=== PATIENT | female | born 1935 | race Hispanic/Latino ===

== ENCOUNTER → 2017-07-15 | Outpatient (CLI) | payer OTHER ==
[~2017-07-15] MED LIST: ALBU90AE IH; APIX2.5T PO; APIX5TAB PO; CALC-1009 PO; CETI10TA57 PO; DOXY100T2 PO; FAMO40TA7 PO; FERS325 PO; FLUT16H NASAL; FURO40TA7 PO; GABA-529 PO; MONT10TA24 PO; MULT-88 PO; POTA-79 PO; PRAV10TA39 PO; PRAV20TA4 PO; TRAM50TA4 PO; UMEC1DIS IH
== END | disposition home or self-care (01) ==
LOC: SHCH 11:55
PROVIDERS: ATTEND Internal Medicine Cardiovascular Disease
DX: I07.1 Rheumatic tricuspid insufficiency (principal); I35.0 Nonrheumatic aortic (valve) stenosis; Z95.0 Presence of cardiac pacemaker
CPT/HCPCS: 93306

== ENCOUNTER 2017-07-26 05:38 | Day surgery (SDC) | payer OTHER ==
[2017-07-24 13:56] VITALS: BP 101/55
[2017-07-24 14:00] LABS: BASOPHILS % (AUTO) 0.9 % (0.0-5.0); EOSINOPHILS % (AUTO) 6.3 % (0.0-8.0); HEMATOCRIT 37.1 % (36-48); LYMPHOCYTES % (AUTO) 17.1 % (21.0-51.0); MEAN CORPUSCULAR HGB CONC 34.3 g/dL (32.0-36.0); MEAN CORPUSCULAR VOLUME 93.3 fL (79-99); MONOCYTES % (AUTO) 8.8 % (3.0-13.0); NEUTROPHILS % (AUTO) 66.9 % (40.0-77.0); PLATELET COUNT (AUTO) 138 K/uL (130-400); RED BLOOD CELL COUNT(AUTO) 3.98 MIL/uL (4.00-5.50); RED CELL DISTRIBUTION WIDTH 14.3 % (11.0-15.5); WHITE BLOOD COUNT (AUTO) 5.8 K/uL (4.8-10.8)
[2017-07-24 14:13] LABS: CREATININE 1.5 mg/dL (0.5-1.5); POTASSIUM 3.5 mmol/L (3.5-5.1)
[2017-07-24 14:15] LABS: INR 1.05 (0.85-1.15); PARTIAL THROMBOPLASTIN TIME 29.8 SEC (26.3-35.5)
[2017-07-26] VITALS (10 sets, daily range): BP systolic 101–141; BP diastolic 40–71
[~2017-07-26] VITALS: Ht 152.4 cm; Wt 65.4 kg
[~2017-07-26 05:38] MED LIST changes: -APIX2.5T PO; -DOXY100T2 PO; -PRAV10TA39 PO
[2017-07-26] MEDS ORDERED: SODIUM CHLORIDE 0.9% 1000ML 1,000 ML IV ONE (06:53)
[2017-07-26] MEDS ORDERED: BUPIVACAINE/PF 0.25% 30ML VIAL IJ ONE (07:13)
[2017-07-26] MEDS ORDERED: LIDOCAINE HCL 1% MDV 50ML VIAL ONE (07:13)
[2017-07-26] MEDS ORDERED: CEFAZOLIN SODIUM 1 GM VIAL ONE (07:13)
[2017-07-26] MEDS ORDERED: MEPERIDINE-PF 25 MG/ML SYG ONE ×3 (07:39→08:07)
[2017-07-26] MEDS ORDERED: MIDAZOLAM HCL 1 MG/ML 2ML VIAL ONE ×3 (07:39→08:07)
[2017-07-26] MEDS ORDERED: OCTYL 2-CYANOACRYLATE 1 EACH TP ONE (08:39)
[2017-07-26] MEDS ORDERED: ACETAMINOPHEN 325 MG TAB PO PRN ×2 (08:45)
[2017-07-26] MEDS ORDERED: ONDANSETRON HCL 4 MG/2 ML VIAL IV PRN (08:45)
[2017-07-26] MEDS ORDERED: DOXY100T2 PO (08:50)
[2017-07-26] MEDS ORDERED: ONDANSETRON HCL MDV 20ML 2 MG/ML VIAL IV PRN (08:52)
[2017-07-26] MEDS ORDERED: CEFAZOLIN SODIUM 1 GM VIAL IVP SCH (14:00)
== END 2017-07-26 15:00 | disposition home or self-care (01) ==
LOC: DAH 05:38
PROVIDERS: ATTEND Internal Medicine Cardiovascular Disease
DX: Z45.010 Encounter for checking and testing of cardiac pacemaker pulse generator [battery] (principal); I49.5 Sick sinus syndrome; I48.0 Paroxysmal atrial fibrillation; I10 Essential (primary) hypertension; J44.9 Chronic obstructive pulmonary disease, unspecified; J45.901 Unspecified asthma with (acute) exacerbation; M19.90 Unspecified osteoarthritis, unspecified site; Z88.5 Allergy status to narcotic agent; Z79.899 Other long term (current) drug therapy
CPT/HCPCS: 33228; 36415; 80048; 85025; 85610; 85730; 93005; 99152; 99153 ×4; A4218; A4606; C1785; J0690 ×2; J2175 ×3; J2250 ×3; J3490 ×2; J7030

== ENCOUNTER 2018-12-19 12:31 | Observation (INO) | payer OTHER ==
[~2018-12-19] VITALS: Ht 154.9 cm; Wt 65.1 kg
[~2018-12-19 12:31] MED LIST changes: +DOXY100T2 PO
[2018-12-19] MEDS ORDERED: ASPIRIN 325 MG TABLET ONE (12:38)
[2018-12-19 12:50] LABS: BASOPHILS % (AUTO) 0.6 % (0.0-5.0); EOSINOPHILS % (AUTO) 7.2 % (0.0-8.0); HEMATOCRIT 36.7 % (36-48); MEAN CORPUSCULAR HEMOGLOBIN 33.2 pg (27.0-33.0); MEAN CORPUSCULAR VOLUME 97.7 fL (79-99); MONOCYTES % (AUTO) 9.4 % (3.0-13.0); NEUTROPHILS % (AUTO) 60.8 % (40.0-77.0); PLATELET COUNT (AUTO) 128 K/uL (130-400); RED BLOOD CELL COUNT(AUTO) 3.76 MIL/uL (4.00-5.50); RED CELL DISTRIBUTION WIDTH 13.7 % (11.0-15.5); WHITE BLOOD COUNT (AUTO) 5.1 K/uL (4.8-10.8)
[2018-12-19] MEDS ORDERED: KETOROLAC TROMETHAMINE 15MG/ML ONE (12:51)
[2018-12-19 13:05] LABS: INR 1.03 (0.85-1.15); PARTIAL THROMBOPLASTIN TIME 30.1 SEC (26.3-35.5); PROTHROMBIN TIME 10.8 SEC (9.6-11.6)
[2018-12-19 13:11] LABS: CREATININE 1.4 mg/dL (0.5-1.5); POTASSIUM 4.5 mmol/L (3.5-5.1)
[2018-12-19 13:16] LABS: ALBUMIN 3.6 g/dL (3.5-5.0); BILIRUBIN,TOTAL 0.9 mg/dL (0.2-1.0); TOTAL PROTEIN, SERUM 7.4 g/dL (6.0-8.3)
[2018-12-19] MEDS ORDERED: IOHEXOL 350 MG/ML 100ML INFUS..BTL IV ONE (14:10)
[2018-12-19] MEDS ORDERED: NITROGLYCERIN 0.4 MG SL TAB SL ONE (14:44)
[2018-12-19] MEDS ORDERED: NITROGLYCERIN 1GM/1 INCH PACKET TD ONE (15:43)
[2018-12-19] MEDS ORDERED: APIXABAN 2.5 MG TABLET PO ONE (20:38)
[2018-12-19] MEDS ORDERED: SODIUM CHLORIDE 0.9% 1000ML 1,000 ML IV ONE (21:04)
[2018-12-19] MEDS ORDERED: MORPHINE SULFATE 4 MG/1ML SYG ONE (21:05)
[2018-12-19] MEDS ORDERED: ONDANSETRON HCL 4 MG/2 ML VIAL ONE (21:05)
[2018-12-20] VITALS (7 sets, daily range): BP systolic 106–137; BP diastolic 57–78
--- NOTE | 2018-12-20 00:54 | NUR ---
ADMIT PT ADMITTED TO ROOM 326, AAOX3. DENIES ANY CP NOR DISCOMFORT AT THIS TIME. ADMISSION CARE DONE. ADMISSION DATA BASE COMPLETED. ORIENTED TO ROOM AND UNIT. CALL LIGHT WITHIN REACH. IN FOR MORE CARE AND MANAGEMENT. BED ALARM ACTIVATED. RE-ITERATED ON FALL PRECAUTIONS. Addendum: 12/20/18 at 0207 by CORNELIA COLÓN RN RN Amended: Links added.
[2018-12-20] MEDS ORDERED: TRAMADOL HCL 50 MG TABLET PO PRN (01:15)
[2018-12-20 02:32] LABS: HEMATOCRIT 29.5 % (36-48); MEAN CORPUSCULAR HEMOGLOBIN 33.4 pg (27.0-33.0); MEAN CORPUSCULAR HGB CONC 34.3 g/dL (32.0-36.0); MEAN CORPUSCULAR VOLUME 97.5 fL (79-99); PLATELET COUNT (AUTO) 110 K/uL (130-400); RED BLOOD CELL COUNT(AUTO) 3.02 MIL/uL (4.00-5.50); RED CELL DISTRIBUTION WIDTH 13.8 % (11.0-15.5); WHITE BLOOD COUNT (AUTO) 4.3 K/uL (4.8-10.8)
[2018-12-20 02:49] LABS: CREATININE 1.2 mg/dL (0.5-1.5); POTASSIUM 3.5 mmol/L (3.5-5.1); TROPONIN I 0.07 ng/mL (0.00-0.06)
--- NOTE | 2018-12-20 05:00 | NUR ---
BATH PCP IN AND GAVE PT A BED BATH, TOLERATED ACTIVITY WELL. KEPT NPO FOR STRESS TEST TODAY. FOR MORE CARE.
[2018-12-20] MEDS ORDERED: MULTIVITAMINS/MINERALS/IRO TAB PO SCH (09:00)
[2018-12-20] MEDS: GABAPENTIN 100 MG CAPSULE PO SCH ×3 (09:00→21:12)
[2018-12-20] MEDS ORDERED: APIXABAN 2.5 MG TABLET PO SCH (09:00)
[2018-12-20] MEDS ORDERED: REGADENOSON 0.4 MG/5 ML PF SYG IVP SCH (11:15)
[2018-12-20] MEDS: FERROUS SULFATE 325 MG TABLET.DR PO SCH (14:45)
[2018-12-20] MEDS: CETIRIZINE HCL 5 MG TABLET PO SCH (14:45)
[2018-12-20] MEDS: CALCIUM 600 + VITAMIN D 400 TABLET PO SCH (14:45)
[2018-12-20] MEDS: FAMOTIDINE 20MG TAB 20 MG TAB PO SCH (14:46)
[2018-12-20] MEDS: APIXABAN 5 MG TABLET PO SCH ×2 (14:46→21:11)
[2018-12-20] MEDS: MONTELUKAST SODIUM 10 MG TAB PO SCH (14:47)
[2018-12-20] MEDS: FUROSEMIDE 40 MG TABLET PO SCH (14:47)
[2018-12-20] MEDS: POTASSIUM CHLORIDE 10 MEQ/TAB.SA PO SCH (14:54)
[2018-12-20] MEDS: MULTIVITAMIN WITH MINERALS TABLET PO SCH (16:31)
[2018-12-20] MEDS: **HM** ANORO ELLIPTA 62.5-25MCG IH SCH (16:43)
[2018-12-20] MEDS ORDERED: ATORVASTATIN CALCIUM 10 MG TABLET PO SCH (21:00)
[2018-12-21 03:43] VITALS: BP 112/57
[2018-12-21] MEDS: FUROSEMIDE 40 MG TABLET PO SCH (05:02)
[2018-12-21] MEDS: **HM** ANORO ELLIPTA 62.5-25MCG IH SCH (06:53)
[2018-12-21 08:00] VITALS: BP 121/63
[2018-12-21] MEDS: POTASSIUM CHLORIDE 10 MEQ/TAB.SA PO SCH (09:10)
[2018-12-21] MEDS: FERROUS SULFATE 325 MG TABLET.DR PO SCH (09:10)
[2018-12-21] MEDS: CETIRIZINE HCL 5 MG TABLET PO SCH (09:10)
[2018-12-21] MEDS: CALCIUM 600 + VITAMIN D 400 TABLET PO SCH (09:10)
[2018-12-21] MEDS: FAMOTIDINE 20MG TAB 20 MG TAB PO SCH (09:11)
[2018-12-21] MEDS: APIXABAN 5 MG TABLET PO SCH (09:11)
[2018-12-21] MEDS: MULTIVITAMIN WITH MINERALS TABLET PO SCH (09:11)
[2018-12-21] MEDS: MONTELUKAST SODIUM 10 MG TAB PO SCH (09:14)
[2018-12-21] MEDS: GABAPENTIN 100 MG CAPSULE PO SCH (09:15)
--- NOTE | 2018-12-21 13:03 | NUR ---
DISCHARGE INSTRUCTION GIVEN. INSTRUCTED TO FOLLOW UP WITH PCP AND CONTINUOUS CRUSHER OPERATOR . ALL QUESTIONS ANSWERED. IV DISCONTINUED.
== END 2018-12-21 13:10 | disposition home or self-care (01) ==
LOC: EDH 12:31 → EDHIP 16:30 → 3DH 12-20 00:37
PROVIDERS: ADMIT Internal Medicine; ATTEND Internal Medicine
DX: R07.89 Other chest pain (principal); I48.0 Paroxysmal atrial fibrillation; I11.0 Hypertensive heart disease with heart failure; I50.9 Heart failure, unspecified; I35.0 Nonrheumatic aortic (valve) stenosis; I49.5 Sick sinus syndrome; J98.59 Other diseases of mediastinum, not elsewhere classified; J44.9 Chronic obstructive pulmonary disease, unspecified; E03.9 Hypothyroidism, unspecified; E78.5 Hyperlipidemia, unspecified; I25.10 Atherosclerotic heart disease of native coronary artery without angina pectoris; I25.2 Old myocardial infarction; I34.0 Nonrheumatic mitral (valve) insufficiency; I49.3 Ventricular premature depolarization; R94.31 Abnormal electrocardiogram [ECG] [EKG]; Z95.0 Presence of cardiac pacemaker; Z79.01 Long term (current) use of anticoagulants; Z79.899 Other long term (current) drug therapy; Z88.5 Allergy status to narcotic agent
CPT/HCPCS: 36415 ×2; 71045; 71275; 78452; 80048; 80053; 82550 ×3; 83690; 83874; 84484 ×3; 85025; 85027; 85378; 85610; 85730; 93005 ×2; 93017; 93306; 99284; A4510; A9500 ×2; G0378 ×36; J1885; J2270; J2405; J2785; J7030; Q9967; 96374

== ENCOUNTER 2019-04-09 05:56 | Observation (INO) | payer OTHER ==
[~2019-04-09] VITALS: Ht 157.5 cm; Wt 63.0 kg
[~2019-04-09 05:56] MED LIST changes: -ALBU90AE IH; -DOXY100T2 PO; -FLUT16H NASAL
[2019-04-09 06:15] LABS: BASOPHILS % (AUTO) 0.2 % (0.0-5.0); EOSINOPHILS % (AUTO) 1.7 % (0.0-8.0); LYMPHOCYTES % (AUTO) 16.5 % (21.0-51.0); MEAN CORPUSCULAR HEMOGLOBIN 30.4 pg (27.0-33.0); MEAN CORPUSCULAR HGB CONC 32.8 g/dL (32.0-36.0); MEAN CORPUSCULAR VOLUME 92.7 fL (79-99); MONOCYTES % (AUTO) 7.5 % (3.0-13.0); NEUTROPHILS % (AUTO) 73.4 % (40.0-77.0); PLATELET COUNT (AUTO) 208 K/uL (130-400); RED BLOOD CELL COUNT(AUTO) 3.13 MIL/uL (4.00-5.50); RED CELL DISTRIBUTION WIDTH 15.4 % (11.0-15.5); WHITE BLOOD COUNT (AUTO) 9.5 K/uL (4.8-10.8)
[2019-04-09 06:28] LABS: POTASSIUM 4.4 mmol/L (3.5-5.1)
[2019-04-09 06:29] LABS: INR 1.15 (0.85-1.15); PARTIAL THROMBOPLASTIN TIME 36.6 SEC (26.3-35.5)
[2019-04-09] MEDS ORDERED: CEFTRIAXONE SODIUM 2 GM VIAL ONE (06:33)
[2019-04-09] MEDS ORDERED: DEXAMETHASONE SOD PHOSPHATE 10MG/ML 1ML VIAL ONE (06:34)
[2019-04-09] MEDS ORDERED: SODIUM CHLORIDE 0.9% 50 ML IV ONE (06:34)
[2019-04-09 06:35] LABS: ALBUMIN 2.4 g/dL (3.5-5.0); BILIRUBIN,TOTAL 0.9 mg/dL (0.2-1.0); TOTAL PROTEIN, SERUM 6.6 g/dL (6.0-8.3)
[2019-04-09] MEDS ORDERED: IPRATROPIUM/ALBUTEROL SULFATE 3 ML SOLUTION IH ONE ×2 (06:41→11:03)
[2019-04-09 06:48] LABS: B-TYPE NATRIURETIC PEPTIDE 939 pg/mL (0-100)
[2019-04-09 06:56] LABS: APPEARANCE,URINE Clear (CLEAR); BILIRUBIN,URINE Negative (NEGATIVE); COLOR,URINE Yellow (YELLOW); GLUCOSE, URINE (UA) Negative (NEGATIVE); KETONES,URINE Negative (NEGATIVE); LEUKOCYTE ESTERASE ,URINE Negative (NEGATIVE); NITRATE,URINE Negative (NEGATIVE); OCCULT BLOOD,URINE Negative (NEGATIVE); PROTEIN,URINE Negative (NEGATIVE); UROBILINOGEN,URINE 0.2 mg/dL (0.2-1.0)
[2019-04-09 07:07] LABS: ABG OXYGEN SATURATION 93.2 % (95.0-99.0); ABG PCO2 34 mmHg (32-45)
[2019-04-09] MEDS: IPRATROPIUM/ALBUTEROL SULFATE 3 ML SOLUTION IH SCH ×3 (11:09→23:49)
[2019-04-09 12:00] VITALS: BP 123/61
[2019-04-09 16:00] VITALS: BP 105/43
[2019-04-09] MEDS ORDERED: GABA-529 PO (16:56)
[2019-04-09] MEDS ORDERED: FURO40TA5 PO (16:56)
[2019-04-09] MEDS ORDERED: TRAM50TA4 PO (16:56)
[2019-04-09] MEDS ORDERED: IRON-23 PO (16:56)
[2019-04-09] MEDS ORDERED: MULT-1238 PO (16:56)
[2019-04-09] MEDS ORDERED: POTA20PA32 PO (16:56)
[2019-04-09] MEDS ORDERED: UMEC1DIS IH (16:56)
[2019-04-09] MEDS ORDERED: [UNRECOGNIZED DRUG - OTHER] PO (16:56)
[2019-04-09] MEDS ORDERED: FAMO40TA7 PO (16:56)
[2019-04-09] MEDS ORDERED: CALC-991 PO (16:56)
[2019-04-09] MEDS ORDERED: MONT10TA24 PO (16:56)
[2019-04-09] MEDS ORDERED: PRAV20TA4 PO (17:04)
[2019-04-09] MEDS ORDERED: APIX5TAB PO (17:04)
[2019-04-09 20:04] VITALS: BP 110/57
[2019-04-10 00:04] VITALS: BP 100/52
[2019-04-10 04:08] VITALS: BP 107/58
[2019-04-10] MEDS: CEFTRIAXONE SODIUM 1 GM IVP SCH (05:31)
[2019-04-10] MEDS: IPRATROPIUM/ALBUTEROL SULFATE 3 ML SOLUTION IH SCH ×4 (06:07→23:09)
[2019-04-10] MEDS ORDERED: TRAMADOL HCL 50 MG TABLET PO PRN (07:15)
[2019-04-10 08:00] VITALS: BP 127/63
[2019-04-10] MEDS: FAMOTIDINE 20MG TAB 20 MG TAB PO SCH (08:50)
[2019-04-10] MEDS: APIXABAN 5 MG TABLET PO SCH ×2 (08:50→19:46)
[2019-04-10] MEDS: CALCIUM 600 + VITAMIN D 400 TABLET PO SCH (08:51)
[2019-04-10] MEDS: MONTELUKAST SODIUM 10 MG TAB PO SCH (08:51)
[2019-04-10] MEDS: GABAPENTIN 100 MG CAPSULE PO SCH ×3 (08:51→21:40)
[2019-04-10] MEDS: MULTIVITAMINS/MINERALS/IRO TAB PO SCH (08:52)
[2019-04-10] MEDS: FUROSEMIDE 40 MG TABLET PO SCH (08:53)
[2019-04-10] MEDS: POTASSIUM CHLORIDE 20 MEQ ERTAB PO SCH (08:53)
[2019-04-10] MEDS: IRON PLUS PO SCH (09:00)
[2019-04-10] MEDS: [UNRECOGNIZED DRUG - OTHER] PO SCH ×4 (09:00→21:00)
[2019-04-10] MEDS: **HM** ANORO ELLIPTA 62.5-25MCG IH SCH (09:00)
[2019-04-10 11:52] VITALS: BP 105/59
[2019-04-10 16:00] VITALS: BP 108/57
--- NOTE | 2019-04-10 16:09 | NUR ---
MET W PATIENT FOR DC PLANNING. PT STATES LIVS ALONE, IS INDP, USES A CANE OCCASIONALLY, SEE DR. CARBAJAL, DR. HUERTA COVERING DOES ALL THINGS HERSELF EXCEPT DRIVING, DAUGHTER [employer] WILL SUPPPLY TRANSPORT HOME. LINDA MURO TO [facility], COMPLAINS ONLY THAT SHE HAS NOT BEEN FED WELL. DCP IS TO HOME. Addendum: 04/10/19 at 1611 by SWAPNIL MOULTON RN CM Amended: Links added.
[2019-04-10 19:27] VITALS: BP 103/72
[2019-04-10] MEDS ORDERED: ATORVASTATIN CALCIUM 10 MG TABLET PO SCH (21:00)
[2019-04-11] VITALS: BP 119/72
[2019-04-11 03:00] VITALS: BP 103/57
[2019-04-11 04:44] LABS: HEMATOCRIT 24.3 % (36-48); MEAN CORPUSCULAR HEMOGLOBIN 30.7 pg (27.0-33.0); MEAN CORPUSCULAR HGB CONC 32.9 g/dL (32.0-36.0); MEAN CORPUSCULAR VOLUME 93.1 fL (79-99); PLATELET COUNT (AUTO) 226 K/uL (130-400); RED BLOOD CELL COUNT(AUTO) 2.61 MIL/uL (4.00-5.50); RED CELL DISTRIBUTION WIDTH 15.2 % (11.0-15.5); WHITE BLOOD COUNT (AUTO) 9.4 K/uL (4.8-10.8)
[2019-04-11 04:55] LABS: BAND NEUTROPHILS % (MANUAL) 9 % (0-2); EOSINOPHILS % (MANUAL) 2 % (1-6); LYMPHOCYTES % (MANUAL) 9 % (22-44); MAN.DIFF COMMENT-IMPRESSION MANUAL DIFFERENTIAL; MONOCYTES % (MANUAL) 2 % (2-9); PLATELET MORPHOLOGY COMMENT ADEQUATE; SEGMENTED NEUTROPHILS % 78 % (40-70)
[2019-04-11 04:56] LABS: ALBUMIN 2.2 g/dL (3.5-5.0); BILIRUBIN,TOTAL 0.2 mg/dL (0.2-1.0); CREATININE 1.1 mg/dL (0.5-1.5); POTASSIUM 3.1 mmol/L (3.5-5.1); TOTAL PROTEIN, SERUM 5.5 g/dL (6.0-8.3)
[2019-04-11] MEDS: POTASSIUM CHLORIDE 20 MEQ ERTAB PO SCH ×2 (05:39→10:13)
[2019-04-11] MEDS: CEFTRIAXONE SODIUM 1 GM IVP SCH (05:39)
[2019-04-11] MEDS: IPRATROPIUM/ALBUTEROL SULFATE 3 ML SOLUTION IH SCH ×2 (07:22→12:06)
[2019-04-11 07:43] VITALS: BP 114/60
--- NOTE | 2019-04-11 08:00 | NUR ---
NOTE AAOX3. DENIES PAIN OR DISCOMFORT AT THIS TIME. NO N/V NO SOB. BBS CLEAR TO ALL LOBES. NO COUGH. REPORTED FEELING SOB EARLIER THIS AM BUT REPORTS NEB TREATMENTS HELP HER. POSSIBLE DC HOME TODAY.
[2019-04-11] MEDS: IRON PLUS PO SCH (08:02)
[2019-04-11] MEDS: **HM** ANORO ELLIPTA 62.5-25MCG IH SCH (08:02)
[2019-04-11] MEDS: [UNRECOGNIZED DRUG - OTHER] PO SCH (08:02)
[2019-04-11] MEDS: FUROSEMIDE 40 MG TABLET PO SCH (10:12)
[2019-04-11] MEDS: GABAPENTIN 100 MG CAPSULE PO SCH (10:13)
[2019-04-11] MEDS: FAMOTIDINE 20MG TAB 20 MG TAB PO SCH (10:13)
[2019-04-11] MEDS: MONTELUKAST SODIUM 10 MG TAB PO SCH (10:13)
[2019-04-11] MEDS: MULTIVITAMINS/MINERALS/IRO TAB PO SCH (10:13)
[2019-04-11] MEDS: CALCIUM 600 + VITAMIN D 400 TABLET PO SCH (10:13)
[2019-04-11] MEDS: APIXABAN 5 MG TABLET PO SCH (10:14)
[2019-04-11 11:24] VITALS: BP 126/61
--- NOTE | 2019-04-11 11:30 | NUR ---
NEBULIZER TOM spoke to pt regarding new prescription for nebulizer. States she has nebulizer at home that she can borrow from family member until DME can be arranged. No other needs verbalized. Plan to home. Addendum: 04/11/19 at 1706 by MYRNA QUINTERO CM Amended: Links added.
--- NOTE | 2019-04-11 12:50 | NUR ---
note Discharge instructions given to patient and daughter at bedside. Both understood instructions. Refer to DC summary for details.
== END 2019-04-11 13:08 | disposition home or self-care (01) ==
LOC: EDH 05:56 → EDHIP 08:03 → 4DH 11:37
PROVIDERS: ADMIT Internal Medicine; ATTEND Internal Medicine
DX: J18.9 Pneumonia, unspecified organism (principal); J44.1 Chronic obstructive pulmonary disease with (acute) exacerbation; I82.409 Acute embolism and thrombosis of unspecified deep veins of unspecified lower extremity; I10 Essential (primary) hypertension; E78.5 Hyperlipidemia, unspecified; Z95.0 Presence of cardiac pacemaker
CPT/HCPCS: 36415 ×2; 36600; 71045; 80053 ×2; 81003; 82550; 82803; 83880; 84484; 85025 ×2; 85610; 85730; 87804 ×2; 93005; 94640 ×10; 94664; 96374; 96376; 97161; 99284; G0378 ×50; G8978; G8979; G8980; G8981; G8982; G8983; J0696 ×3; J1100

== ENCOUNTER → 2019-12-15 | Outpatient (CLI) | payer OTHER ==
[~2019-12-15] MED LIST changes: -CALC-1009 PO; +CALC-991 PO; -CETI10TA57 PO; -FERS325 PO; +FURO40TA5 PO; -FURO40TA7 PO; +IRON-23 PO; -MONT10TA24 PO; +MONT10TA26 PO; +MULT-1238 PO; -MULT-88 PO; -POTA-79 PO; +POTA20PA32 PO; +[UNRECOGNIZED DRUG - OTHER] PO
== END | disposition home or self-care (01) ==
LOC: SHCH 08:58
PROVIDERS: ATTEND Internal Medicine Cardiovascular Disease
DX: I65.23 Occlusion and stenosis of bilateral carotid arteries (principal); I10 Essential (primary) hypertension
CPT/HCPCS: 93306; 93880

== ENCOUNTER 2020-05-01 22:48 | Emergency (ER) | payer MEDICARE, OTHER ==
[~2020-05-01 22:48] MED LIST changes: +MONT-39 PO; -MONT10TA26 PO
[2020-05-02] MEDS ORDERED: CLINDAMYCIN IVPB 900MG/50ML 50 ML IV ONE (01:35)
[2020-05-02 01:56] LABS: APPEARANCE,URINE Clear (CLEAR); BILIRUBIN,URINE Negative (NEGATIVE); COLOR,URINE Yellow (YELLOW); GLUCOSE, URINE (UA) Negative (NEGATIVE); KETONES,URINE Negative (NEGATIVE); LEUKOCYTE ESTERASE ,URINE Trace (NEGATIVE); NITRATE,URINE Negative (NEGATIVE); OCCULT BLOOD,URINE Negative (NEGATIVE); PROTEIN,URINE Negative (NEGATIVE); UROBILINOGEN,URINE 0.2 mg/dL (0.2-1.0)
[2020-05-02 01:57] LABS: BASOPHILS % (AUTO) 0.4 % (0.0-5.0); EOSINOPHILS % (AUTO) 5.8 % (0.0-8.0); LYMPHOCYTES % (AUTO) 23.6 % (21.0-51.0); MEAN CORPUSCULAR HEMOGLOBIN 31.5 pg (27.0-33.0); MEAN CORPUSCULAR HGB CONC 32.6 g/dL (32.0-36.0); MEAN CORPUSCULAR VOLUME 96.7 fL (79-99); MONOCYTES % (AUTO) 12.8 % (3.0-13.0); NEUTROPHILS % (AUTO) 57.2 % (40.0-77.0); PLATELET COUNT (AUTO) 135 K/uL (130-400); RED BLOOD CELL COUNT(AUTO) 3.62 MIL/uL (4.00-5.50); RED CELL DISTRIBUTION WIDTH 15.2 % (11.0-15.5); WHITE BLOOD COUNT (AUTO) 5.3 K/uL (4.8-10.8)
[2020-05-02 02:09] LABS: PROTHROMBIN TIME 10.7 SEC (9.6-11.6)
[2020-05-02 02:11] LABS: PARTIAL THROMBOPLASTIN TIME 25.9 SEC (26.3-35.5)
[2020-05-02 02:32] LABS: BACTERIA,URINE None Seen /HPF (None Seen); RBC,URINE 0-1 /HPF (0-1); WBC,URINE 0-1 /HPF (0-1)
[2020-05-02 02:33] LABS: CREATININE 1.2 mg/dL (0.5-1.5); POTASSIUM 3.3 mmol/L (3.5-5.1)
[2020-05-02 02:37] LABS: BILIRUBIN,TOTAL 0.4 mg/dL (0.2-1.0); TOTAL PROTEIN, SERUM 6.6 g/dL (6.0-8.3)
== END 2020-05-02 03:35 | disposition home or self-care (01) ==
LOC: EDH 22:48
DX: L03.116 Cellulitis of left lower limb (principal); J44.9 Chronic obstructive pulmonary disease, unspecified; E78.5 Hyperlipidemia, unspecified; I10 Essential (primary) hypertension; Z88.5 Allergy status to narcotic agent
CPT/HCPCS: 36415; 70450; 80053; 81001; 82550; 84484; 85025; 85610; 85730; 87040 ×2; 87426; 87804 ×2; 93005; 93971; 96365; 96366; 99285; J3490; U0003

== ENCOUNTER → 2020-06-21 | Outpatient (CLI) | payer MEDICARE ==
[~2020-06-21] MED LIST changes: -MONT-39 PO; +MONT10TA32 PO
== END | disposition home or self-care (01) ==
LOC: OIH 10:27
PROVIDERS: ATTEND Internal Medicine
DX: M19.042 Primary osteoarthritis, left hand (principal); M19.041 Primary osteoarthritis, right hand; M19.072 Primary osteoarthritis, left ankle and foot; M19.071 Primary osteoarthritis, right ankle and foot; M85.842 Other specified disorders of bone density and structure, left hand; M85.841 Other specified disorders of bone density and structure, right hand; M77.31 Calcaneal spur, right foot; M20.11 Hallux valgus (acquired), right foot; M77.32 Calcaneal spur, left foot; M20.12 Hallux valgus (acquired), left foot
CPT/HCPCS: 73630

== ENCOUNTER 2020-06-28 16:53 | Emergency (ER) | payer MEDICARE ==
[~2020-06-28 16:53] MED LIST changes: +MONT-39 PO; -MONT10TA32 PO
[2020-06-28 17:37] LABS: BASOPHILS % (AUTO) 0.4 % (0.0-5.0); EOSINOPHILS % (AUTO) 10.5 % (0.0-8.0); LYMPHOCYTES % (AUTO) 17.2 % (21.0-51.0); MEAN CORPUSCULAR HEMOGLOBIN 31.8 pg (27.0-33.0); MEAN CORPUSCULAR HGB CONC 33.6 g/dL (32.0-36.0); MEAN CORPUSCULAR VOLUME 94.6 fL (79-99); MONOCYTES % (AUTO) 13.7 % (3.0-13.0); PLATELET COUNT (AUTO) 141 K/uL (130-400); RED BLOOD CELL COUNT(AUTO) 2.96 MIL/uL (4.00-5.50); RED CELL DISTRIBUTION WIDTH 15.5 % (11.0-15.5); WHITE BLOOD COUNT (AUTO) 5.2 K/uL (4.8-10.8)
[2020-06-28 17:41] LABS: CREATININE 1.5 mg/dL (0.5-1.5); POTASSIUM 3.8 mmol/L (3.5-5.1)
[2020-06-28 17:52] LABS: BILIRUBIN,TOTAL 1.5 mg/dL (0.2-1.0); TOTAL PROTEIN, SERUM 6.3 g/dL (6.0-8.3)
[2020-06-28 18:21] LABS: B-TYPE NATRIURETIC PEPTIDE 560 pg/mL (0-100)
== END 2020-06-28 19:09 | disposition home or self-care (01) ==
LOC: EDH 16:53
DX: E87.70 Fluid overload, unspecified (principal); D64.9 Anemia, unspecified; R60.0 Localized edema; I10 Essential (primary) hypertension; J44.9 Chronic obstructive pulmonary disease, unspecified; E78.5 Hyperlipidemia, unspecified; Z95.0 Presence of cardiac pacemaker; Z98.890 Other specified postprocedural states
CPT/HCPCS: 36415; 71045; 80053; 83880; 84484; 85025; 93005; 93970

== ENCOUNTER 2020-06-29 04:28 | Inpatient (IN) | payer MEDICARE ==
[~2020-06-29 04:28] MED LIST changes: -MONT-39 PO; +MONT10TA32 PO
[2020-06-29] MEDS ORDERED: FUROSEMIDE 10 MG/ML 4ML VIAL ONE (05:10)
[2020-06-29] MEDS ORDERED: ONDANSETRON HCL 4 MG/2 ML VIAL ONE (05:10)
[2020-06-29] MEDS ORDERED: MORPHINE SULFATE 2 MG/ML 1ML SYG ONE (05:10)
[2020-06-29] MEDS ORDERED: CLINDAMYCIN 600 MG/D5% WATER 50 ML IV ONE (05:10)
[2020-06-29 05:23] LABS: BASOPHILS % (AUTO) 0.5 % (0.0-5.0); EOSINOPHILS % (AUTO) 12.9 % (0.0-8.0); HEMATOCRIT 29.2 % (36-48); LYMPHOCYTES % (AUTO) 14.6 % (21.0-51.0); MEAN CORPUSCULAR HEMOGLOBIN 31.9 pg (27.0-33.0); MEAN CORPUSCULAR HGB CONC 33.9 g/dL (32.0-36.0); MEAN CORPUSCULAR VOLUME 94.2 fL (79-99); MONOCYTES % (AUTO) 11.5 % (3.0-13.0); NEUTROPHILS % (AUTO) 60.1 % (40.0-77.0); PLATELET COUNT (AUTO) 149 K/uL (130-400); RED CELL DISTRIBUTION WIDTH 15.7 % (11.0-15.5); WHITE BLOOD COUNT (AUTO) 5.5 K/uL (4.8-10.8)
[2020-06-29 05:32] LABS: CREATININE 1.3 mg/dL (0.5-1.5); POTASSIUM 3.8 mmol/L (3.5-5.1)
[2020-06-29 05:37] LABS: BILIRUBIN,TOTAL 0.4 mg/dL (0.2-1.0); TOTAL PROTEIN, SERUM 6.3 g/dL (6.0-8.3)
[2020-06-29 05:44] LABS: B-TYPE NATRIURETIC PEPTIDE 883 pg/mL (0-100)
[2020-06-29] MEDS ORDERED: IPRATROPIUM 0.5 MG/2.5 ML INH IH PRN (08:45)
[2020-06-29] MEDS: CEFTRIAXONE SODIUM 1 GM IVP SCH (08:45)
[2020-06-29] MEDS ORDERED: KETOROLAC TROMETHAMINE 15MG/ML IV SCH (08:45)
[2020-06-29] MEDS: MONTELUKAST SODIUM 10 MG TAB PO SCH (09:00)
[2020-06-29] MEDS: METHIMAZOLE 10 MG TAB PO SCH (09:00)
[2020-06-29] MEDS: FAMOTIDINE 20MG TAB 20 MG TAB PO SCH (09:00)
[2020-06-29] MEDS: POTASSIUM CHLORIDE 20 MEQ ERTAB PO SCH (09:00)
[2020-06-29] MEDS: FERROUS SULFATE 325 MG TABLET.DR PO SCH (09:00)
[2020-06-29] MEDS: APIXABAN 5 MG TABLET PO SCH ×2 (09:00→20:27)
[2020-06-29] MEDS: GABAPENTIN 100 MG CAPSULE PO SCH ×3 (09:00→20:26)
[2020-06-29 09:06] LABS: % IRON SATURATION 16.2 % (22-44)
[2020-06-29] MEDS ORDERED: FAMOTIDINE 20MG TAB 20 MG TAB ONE (09:45)
[2020-06-29] MEDS ORDERED: FERROUS SULFATE 325 MG TABLET.DR ONE (09:45)
[2020-06-29] MEDS ORDERED: GABAPENTIN 100 MG CAPSULE ONE (09:46)
[2020-06-29] MEDS ORDERED: CEFTRIAXONE SODIUM 1 GM ONE (09:46)
[2020-06-29] MEDS ORDERED: KETOROLAC TROMETHAMINE 15MG/ML ONE (09:46)
[2020-06-29 11:30] VITALS: BP 139/60
[2020-06-29 12:00] VITALS: BP 139/60
[2020-06-29] MEDS: FLUTICASONE/VILANTEROL 1 EACH AER.POW.BA IH SCH (17:21)
[2020-06-29] MEDS: METHYLPREDNISOLONE SOD SUCC 40MG/ML 1ML IVP SCH (17:21)
[2020-06-29 17:26] VITALS: BP 120/65
[2020-06-29] MEDS: IPRATROPIUM/ALBUTEROL SULFATE 3 ML SOLUTION IH SCH ×2 (18:16→23:42)
[2020-06-29 20:00] VITALS: BP 106/53
[2020-06-29] MEDS: TRAMADOL HCL 50 MG TABLET PO PRN (20:33)
[2020-06-30] VITALS (7 sets, daily range): BP systolic 107–127; BP diastolic 57–73
[2020-06-30] MEDS: METHYLPREDNISOLONE SOD SUCC 40MG/ML 1ML IVP SCH ×2 (03:18→14:18)
[2020-06-30 06:00] LABS: BASOPHILS % (AUTO) 0.2 % (0.0-5.0); HEMATOCRIT 29.3 % (36-48); LYMPHOCYTES % (AUTO) 4.4 % (21.0-51.0); MEAN CORPUSCULAR HEMOGLOBIN 31.8 pg (27.0-33.0); MEAN CORPUSCULAR HGB CONC 33.8 g/dL (32.0-36.0); MEAN CORPUSCULAR VOLUME 94.2 fL (79-99); MONOCYTES % (AUTO) 2.5 % (3.0-13.0); NEUTROPHILS % (AUTO) 92.7 % (40.0-77.0); PLATELET COUNT (AUTO) 135 K/uL (130-400); RED BLOOD CELL COUNT(AUTO) 3.11 MIL/uL (4.00-5.50); RED CELL DISTRIBUTION WIDTH 15.5 % (11.0-15.5); WHITE BLOOD COUNT (AUTO) 5.7 K/uL (4.8-10.8)
[2020-06-30 06:15] LABS: CREATININE 1.7 mg/dL (0.5-1.5); MAGNESIUM 2.1 mg/dL (1.80-2.40); POTASSIUM 4.2 mmol/L (3.5-5.1)
[2020-06-30] MEDS: IPRATROPIUM/ALBUTEROL SULFATE 3 ML SOLUTION IH SCH ×3 (06:18→19:00)
[2020-06-30] MEDS: FAMOTIDINE 20MG TAB 20 MG TAB PO SCH (08:54)
[2020-06-30] MEDS: METHIMAZOLE 10 MG TAB PO SCH (08:54)
[2020-06-30] MEDS: MONTELUKAST SODIUM 10 MG TAB PO SCH (08:55)
[2020-06-30] MEDS: POTASSIUM CHLORIDE 20 MEQ ERTAB PO SCH (08:55)
[2020-06-30] MEDS: GABAPENTIN 100 MG CAPSULE PO SCH ×3 (08:55→20:05)
[2020-06-30] MEDS: APIXABAN 5 MG TABLET PO SCH ×2 (08:56→20:05)
[2020-06-30] MEDS: FERROUS SULFATE 325 MG TABLET.DR PO SCH (08:56)
[2020-06-30] MEDS: FUROSEMIDE 10 MG/ML 4ML VIAL IV SCH (08:57)
[2020-06-30] MEDS: CEFTRIAXONE SODIUM 1 GM IVP SCH (08:57)
[2020-06-30] MEDS: FLUTICASONE/VILANTEROL 1 EACH AER.POW.BA IH SCH (09:00)
[2020-06-30] MEDS: TRAMADOL HCL 50 MG TABLET PO PRN (20:09)
[2020-07-01] MEDS: IPRATROPIUM/ALBUTEROL SULFATE 3 ML SOLUTION IH SCH ×5 (00:36→23:31)
[2020-07-01] MEDS: METHYLPREDNISOLONE SOD SUCC 40MG/ML 1ML IVP SCH ×2 (03:12→14:55)
[2020-07-01 04:03] VITALS: BP 137/74
[2020-07-01 08:03] VITALS: BP 122/59
[2020-07-01 08:59] LABS: HEMATOCRIT 32.1 % (36-48); LYMPHOCYTES % (AUTO) 2.4 % (21.0-51.0); MEAN CORPUSCULAR HEMOGLOBIN 30.6 pg (27.0-33.0); MEAN CORPUSCULAR HGB CONC 32.1 g/dL (32.0-36.0); MEAN CORPUSCULAR VOLUME 95.3 fL (79-99); NEUTROPHILS % (AUTO) 95.8 % (40.0-77.0); PLATELET COUNT (AUTO) 167 K/uL (130-400); RED BLOOD CELL COUNT(AUTO) 3.37 MIL/uL (4.00-5.50); RED CELL DISTRIBUTION WIDTH 15.7 % (11.0-15.5); WHITE BLOOD COUNT (AUTO) 7.6 K/uL (4.8-10.8)
[2020-07-01] MEDS: FLUTICASONE/VILANTEROL 1 EACH AER.POW.BA IH SCH (09:00)
[2020-07-01 09:23] LABS: ALBUMIN 3.1 g/dL (3.5-5.0); BILIRUBIN,TOTAL 0.2 mg/dL (0.2-1.0); CREATININE 1.4 mg/dL (0.5-1.5); POTASSIUM 3.4 mmol/L (3.5-5.1); TOTAL PROTEIN, SERUM 6.6 g/dL (6.0-8.3); URIC ACID 10.7 mg/dL (2.6-7.2)
[2020-07-01] MEDS: FUROSEMIDE 10 MG/ML 4ML VIAL IV SCH (10:02)
[2020-07-01] MEDS: CEFTRIAXONE SODIUM 1 GM IVP SCH (10:02)
[2020-07-01] MEDS: METHIMAZOLE 10 MG TAB PO SCH (10:03)
[2020-07-01] MEDS: GABAPENTIN 100 MG CAPSULE PO SCH ×3 (10:03→21:06)
[2020-07-01] MEDS: POTASSIUM CHLORIDE 20 MEQ ERTAB PO SCH (10:03)
[2020-07-01] MEDS: MONTELUKAST SODIUM 10 MG TAB PO SCH (10:04)
[2020-07-01] MEDS: FERROUS SULFATE 325 MG TABLET.DR PO SCH (10:04)
[2020-07-01] MEDS: FAMOTIDINE 20MG TAB 20 MG TAB PO SCH (10:04)
[2020-07-01] MEDS: APIXABAN 5 MG TABLET PO SCH ×2 (10:04→21:06)
[2020-07-01] MEDS: TRAMADOL HCL 50 MG TABLET PO PRN (10:22)
[2020-07-01 12:08] VITALS: BP 149/67
[2020-07-01 16:25] VITALS: BP 118/67
[2020-07-01] MEDS ORDERED: POTASSIUM CHLORIDE 20 MEQ ERTAB PO PRN (19:00)
[2020-07-01] MEDS ORDERED: LIDOCAINE HCL-MPF 1% 2ML VIAL IV PRN (19:00)
[2020-07-01] MEDS ORDERED: POTASSIUM CHLORIDE 10% ELIXIR 20 MEQ/15 ML UDCUP PO PRN (19:00)
[2020-07-01] MEDS ORDERED: POTASSIUM CHLORIDE 10MEQ/100ML 100 ML IV PRN (19:00)
[2020-07-01] MEDS ORDERED: COLCHICINE 0.6 MG TABLET PO SCH ×2 (19:15→20:15)
[2020-07-01] MEDS: SODIUM CHLORIDE 0.9% 1000ML 1,000 ML IV SCH (20:27)
[2020-07-01] MEDS: COLCHICINE 0.6 MG TABLET PO SCH (21:07)
[2020-07-01 21:20] VITALS: BP 123/60
[2020-07-01 23:58] VITALS: BP 123/60
[2020-07-02] MEDS ORDERED: GUAIFENESIN-CODEINE 5 ML SYRUP ONE (00:10)
[2020-07-02] MEDS ORDERED: GUAIFENESIN-DM 200/20 MG 10 ML ONE (00:17)
[2020-07-02] MEDS: METHYLPREDNISOLONE SOD SUCC 40MG/ML 1ML IVP SCH ×2 (02:29→14:59)
[2020-07-02] MEDS: SODIUM CHLORIDE 0.9% 1000ML 1,000 ML IV SCH ×2 (02:36→13:00)
[2020-07-02] MEDS ORDERED: GUAIFENESIN-DM 200/20 MG 10 ML PO PRN ×2 (04:00)
[2020-07-02 05:32] VITALS: BP 118/64
[2020-07-02 05:42] LABS: HEMATOCRIT 29.1 % (36-48); LYMPHOCYTES % (AUTO) 3.7 % (21.0-51.0); MEAN CORPUSCULAR HEMOGLOBIN 31.3 pg (27.0-33.0); MEAN CORPUSCULAR HGB CONC 32.6 g/dL (32.0-36.0); MEAN CORPUSCULAR VOLUME 95.7 fL (79-99); NEUTROPHILS % (AUTO) 92.4 % (40.0-77.0); PLATELET COUNT (AUTO) 159 K/uL (130-400); RED BLOOD CELL COUNT(AUTO) 3.04 MIL/uL (4.00-5.50); RED CELL DISTRIBUTION WIDTH 16.2 % (11.0-15.5); WHITE BLOOD COUNT (AUTO) 7.7 K/uL (4.8-10.8)
[2020-07-02 06:02] LABS: ALBUMIN 2.8 g/dL (3.5-5.0); BILIRUBIN,TOTAL 0.2 mg/dL (0.2-1.0); CREATININE 1.3 mg/dL (0.5-1.5); POTASSIUM 3.8 mmol/L (3.5-5.1); TOTAL PROTEIN, SERUM 5.8 g/dL (6.0-8.3)
[2020-07-02] MEDS: IPRATROPIUM/ALBUTEROL SULFATE 3 ML SOLUTION IH SCH ×4 (06:47→23:45)
[2020-07-02] MEDS: CEFTRIAXONE SODIUM 1 GM IVP SCH (08:10)
[2020-07-02] MEDS: MONTELUKAST SODIUM 10 MG TAB PO SCH (08:11)
[2020-07-02] MEDS: FUROSEMIDE 10 MG/ML 4ML VIAL IV SCH (08:11)
[2020-07-02] MEDS: APIXABAN 5 MG TABLET PO SCH ×2 (08:12→20:33)
[2020-07-02] MEDS: GABAPENTIN 100 MG CAPSULE PO SCH ×3 (08:12→20:33)
[2020-07-02] MEDS: FERROUS SULFATE 325 MG TABLET.DR PO SCH (08:13)
[2020-07-02] MEDS: FAMOTIDINE 20MG TAB 20 MG TAB PO SCH (08:13)
[2020-07-02] MEDS: POTASSIUM CHLORIDE 20 MEQ ERTAB PO SCH (08:13)
[2020-07-02 08:15] VITALS: BP 141/74
[2020-07-02] MEDS: COLCHICINE 0.6 MG TABLET PO SCH ×2 (08:34→20:33)
[2020-07-02] MEDS: FLUTICASONE/VILANTEROL 1 EACH AER.POW.BA IH SCH (08:35)
[2020-07-02] MEDS: TRAMADOL HCL 50 MG TABLET PO PRN (08:37)
[2020-07-02] MEDS: METHIMAZOLE 10 MG TAB PO SCH (08:41)
[2020-07-02 11:00] VITALS: BP 143/72
[2020-07-02] MEDS ORDERED: KETOROLAC TROMETHAMINE 15MG/ML IV SCH ×2 (13:15→19:00)
[2020-07-02] MEDS: GUAIFENESIN-DM 200/20 MG 10 ML PO PRN (14:07)
[2020-07-02 16:00] VITALS: BP 125/66
[2020-07-02] MEDS ORDERED: KETOROLAC TROMETHAMINE 30MG/ML ONE ×2 (19:02→19:07)
[2020-07-02 19:52] VITALS: BP 136/53
[2020-07-02 23:56] VITALS: BP 112/58
[2020-07-03] MEDS: METHYLPREDNISOLONE SOD SUCC 40MG/ML 1ML IVP SCH ×2 (01:53→14:51)
[2020-07-03] MEDS: GUAIFENESIN-DM 200/20 MG 10 ML PO PRN (01:53)
[2020-07-03 04:11] VITALS: BP 119/49
[2020-07-03 06:00] LABS: BASOPHILS % (AUTO) 0.1 % (0.0-5.0); HEMATOCRIT 29.8 % (36-48); LYMPHOCYTES % (AUTO) 3.3 % (21.0-51.0); MEAN CORPUSCULAR HEMOGLOBIN 31.4 pg (27.0-33.0); MEAN CORPUSCULAR HGB CONC 32.9 g/dL (32.0-36.0); MEAN CORPUSCULAR VOLUME 95.5 fL (79-99); NEUTROPHILS % (AUTO) 92.4 % (40.0-77.0); PLATELET COUNT (AUTO) 158 K/uL (130-400); RED BLOOD CELL COUNT(AUTO) 3.12 MIL/uL (4.00-5.50); RED CELL DISTRIBUTION WIDTH 16.1 % (11.0-15.5); WHITE BLOOD COUNT (AUTO) 7.6 K/uL (4.8-10.8)
[2020-07-03] MEDS: IPRATROPIUM/ALBUTEROL SULFATE 3 ML SOLUTION IH SCH ×2 (06:21→10:55)
[2020-07-03 06:22] LABS: B-TYPE NATRIURETIC PEPTIDE 1080 pg/mL (0-100)
[2020-07-03 06:25] LABS: ALBUMIN 2.8 g/dL (3.5-5.0); BILIRUBIN,TOTAL 0.2 mg/dL (0.2-1.0); CREATININE 1.3 mg/dL (0.5-1.5); POTASSIUM 3.5 mmol/L (3.5-5.1); TOTAL PROTEIN, SERUM 5.7 g/dL (6.0-8.3); URIC ACID 10.8 mg/dL (2.6-7.2)
[2020-07-03 08:10] VITALS: BP 124/60
[2020-07-03] MEDS: CEFTRIAXONE SODIUM 1 GM IVP SCH (08:19)
[2020-07-03] MEDS: FUROSEMIDE 10 MG/ML 4ML VIAL IV SCH (08:19)
[2020-07-03] MEDS: APIXABAN 5 MG TABLET PO SCH ×2 (08:20→21:02)
[2020-07-03] MEDS: COLCHICINE 0.6 MG TABLET PO SCH ×2 (08:20→21:02)
[2020-07-03] MEDS: FAMOTIDINE 20MG TAB 20 MG TAB PO SCH (08:21)
[2020-07-03] MEDS: POTASSIUM CHLORIDE 20 MEQ ERTAB PO SCH (08:21)
[2020-07-03] MEDS: MONTELUKAST SODIUM 10 MG TAB PO SCH (08:21)
[2020-07-03] MEDS: GABAPENTIN 100 MG CAPSULE PO SCH ×3 (08:27→21:02)
[2020-07-03] MEDS: TRAMADOL HCL 50 MG TABLET PO PRN ×2 (08:53→18:21)
[2020-07-03] MEDS: FERROUS SULFATE 325 MG TABLET.DR PO SCH (08:55)
[2020-07-03] MEDS: FLUTICASONE/VILANTEROL 1 EACH AER.POW.BA IH SCH ×2 (09:00→12:54)
[2020-07-03 11:41] VITALS: BP 133/68
[2020-07-03] MEDS: METHIMAZOLE 10 MG TAB PO SCH (12:08)
[2020-07-03] MEDS ORDERED: IPRATROPIUM/ALBUTEROL SULFATE 3 ML SOLUTION IH PRN (15:30)
[2020-07-03 16:42] VITALS: BP 129/65
[2020-07-03 20:00] VITALS: BP_SYST 106; BP_SYST 124; BP_DIAS 69; BP_DIAS 84
[2020-07-03 23:42] VITALS: BP 122/67
[2020-07-04] MEDS: METHYLPREDNISOLONE SOD SUCC 40MG/ML 1ML IVP SCH ×2 (02:09→14:17)
[2020-07-04] MEDS: TRAMADOL HCL 50 MG TABLET PO PRN ×3 (02:42→17:55)
[2020-07-04 03:53] VITALS: BP 129/70
[2020-07-04 04:18] LABS: HEMATOCRIT 29.9 % (36-48); MEAN CORPUSCULAR HEMOGLOBIN 30.5 pg (27.0-33.0); MEAN CORPUSCULAR HGB CONC 31.8 g/dL (32.0-36.0); MEAN CORPUSCULAR VOLUME 96.1 fL (79-99); MONOCYTES % (AUTO) 6.1 % (3.0-13.0); NEUTROPHILS % (AUTO) 85.9 % (40.0-77.0); PLATELET COUNT (AUTO) 163 K/uL (130-400); RED BLOOD CELL COUNT(AUTO) 3.11 MIL/uL (4.00-5.50); RED CELL DISTRIBUTION WIDTH 15.9 % (11.0-15.5); WHITE BLOOD COUNT (AUTO) 6.8 K/uL (4.8-10.8)
[2020-07-04 04:49] LABS: ALBUMIN 2.7 g/dL (3.5-5.0); BILIRUBIN,TOTAL 0.3 mg/dL (0.2-1.0); CREATININE 1.2 mg/dL (0.5-1.5); POTASSIUM 4.2 mmol/L (3.5-5.1); TOTAL PROTEIN, SERUM 5.4 g/dL (6.0-8.3)
[2020-07-04] MEDS: GUAIFENESIN-DM 200/20 MG 10 ML PO PRN (04:58)
[2020-07-04 08:00] VITALS: BP 136/71
[2020-07-04] MEDS: CEFTRIAXONE SODIUM 1 GM IVP SCH (09:03)
[2020-07-04] MEDS: FUROSEMIDE 10 MG/ML 4ML VIAL IV SCH (09:04)
[2020-07-04] MEDS: GABAPENTIN 100 MG CAPSULE PO SCH ×3 (09:05→20:16)
[2020-07-04] MEDS: FAMOTIDINE 20MG TAB 20 MG TAB PO SCH (09:05)
[2020-07-04] MEDS: METHIMAZOLE 10 MG TAB PO SCH (09:06)
[2020-07-04] MEDS: APIXABAN 5 MG TABLET PO SCH ×2 (09:06→20:15)
[2020-07-04] MEDS: POTASSIUM CHLORIDE 20 MEQ ERTAB PO SCH (09:06)
[2020-07-04] MEDS: COLCHICINE 0.6 MG TABLET PO SCH ×2 (09:06→20:15)
[2020-07-04] MEDS: MONTELUKAST SODIUM 10 MG TAB PO SCH (09:07)
[2020-07-04] MEDS: FERROUS SULFATE 325 MG TABLET.DR PO SCH (09:07)
[2020-07-04] MEDS ORDERED: GUAIFENESIN-DM 200/20 MG 10 ML PO PRN (09:30)
[2020-07-04 12:00] VITALS: BP 138/69
[2020-07-04 16:00] VITALS: BP 141/79
[2020-07-04 19:58] VITALS: BP 137/75
[2020-07-04 23:46] VITALS: BP 132/65
[2020-07-05] MEDS: METHYLPREDNISOLONE SOD SUCC 40MG/ML 1ML IVP SCH (03:43)
[2020-07-05] MEDS: TRAMADOL HCL 50 MG TABLET PO PRN ×2 (04:00→08:57)
[2020-07-05 04:26] VITALS: BP 139/73
[2020-07-05 05:56] LABS: HEMATOCRIT 28.6 % (36-48); LYMPHOCYTES % (AUTO) 4.8 % (21.0-51.0); MEAN CORPUSCULAR HEMOGLOBIN 31.1 pg (27.0-33.0); MEAN CORPUSCULAR HGB CONC 32.9 g/dL (32.0-36.0); MEAN CORPUSCULAR VOLUME 94.7 fL (79-99); MONOCYTES % (AUTO) 6.6 % (3.0-13.0); NEUTROPHILS % (AUTO) 87.6 % (40.0-77.0); PLATELET COUNT (AUTO) 152 K/uL (130-400); RED BLOOD CELL COUNT(AUTO) 3.02 MIL/uL (4.00-5.50); RED CELL DISTRIBUTION WIDTH 15.8 % (11.0-15.5)
[2020-07-05 06:12] LABS: CREATININE 0.9 mg/dL (0.5-1.5)
[2020-07-05] MEDS: FUROSEMIDE 10 MG/ML 4ML VIAL IV SCH (08:20)
[2020-07-05] MEDS: FLUTICASONE/VILANTEROL 1 EACH AER.POW.BA IH SCH (08:20)
[2020-07-05] MEDS: CEFTRIAXONE SODIUM 1 GM IVP SCH (08:20)
[2020-07-05] MEDS: MONTELUKAST SODIUM 10 MG TAB PO SCH (08:21)
[2020-07-05] MEDS: COLCHICINE 0.6 MG TABLET PO SCH (08:21)
[2020-07-05] MEDS: FAMOTIDINE 20MG TAB 20 MG TAB PO SCH (08:21)
[2020-07-05] MEDS: GABAPENTIN 100 MG CAPSULE PO SCH ×2 (08:21→15:14)
[2020-07-05] MEDS: FERROUS SULFATE 325 MG TABLET.DR PO SCH (08:21)
[2020-07-05] MEDS: POTASSIUM CHLORIDE 20 MEQ ERTAB PO SCH (08:22)
[2020-07-05] MEDS: APIXABAN 5 MG TABLET PO SCH (08:22)
[2020-07-05 08:44] VITALS: BP 130/75
[2020-07-05] MEDS: METHIMAZOLE 10 MG TAB PO SCH (08:55)
[2020-07-05] MEDS ORDERED: PHARMACY COMMUNICATION MISC ONE (11:45)
[2020-07-05 12:00] VITALS: BP 139/69
[2020-07-05] MEDS ORDERED: COMPOUND PO MISCELLANEOUS 1 EACH MISC MISC PRN (12:00)
[2020-07-05] MEDS ORDERED: METHYLPREDNISOLONE SOD SUCC 40MG/ML 1ML IVP SCH (13:00)
[2020-07-05] MEDS ORDERED: LIDO 2% VISC 30ML+MAG/AL/SIMETH 30ML+DICYCLOMINE 20MG 10ML PO ONE ×3 (13:00)
[2020-07-05] MEDS ORDERED: ALLOPURINOL 100 MG TABLET PO SCH ×2 (14:00→15:30)
[2020-07-05 18:05] VITALS: BP 142/75
[2020-07-05 19:43] VITALS: BP 141/62
[2020-07-05] MEDS ORDERED: PANTOPRAZOLE SODIUM 40 MG TABLET.DR PO SCH (21:00)
[2020-07-06] MEDS ORDERED: ALLOPURINOL 100 MG TABLET PO SCH (09:00)
[2020-07-06] MEDS ORDERED: FUROSEMIDE 40 MG TABLET PO SCH (09:00)
== END 2020-07-05 20:43 | DRG 602 ==
LOC: EDH 04:28 → OBSVTOIN 08:31 → EDHIP 08:31 → 3DH 11:18
PROVIDERS: ADMIT Internal Medicine; ATTEND Internal Medicine
DX: L03.031 Cellulitis of right toe (principal); I50.23 Acute on chronic systolic (congestive) heart failure; M10.9 Gout, unspecified; D64.9 Anemia, unspecified; E03.9 Hypothyroidism, unspecified; E66.9 Obesity, unspecified; I11.0 Hypertensive heart disease with heart failure; I48.91 Unspecified atrial fibrillation; J44.9 Chronic obstructive pulmonary disease, unspecified; E78.5 Hyperlipidemia, unspecified; Z96.652 Presence of left artificial knee joint; Z74.01 Bed confinement status; R54 Age-related physical debility; Z79.01 Long term (current) use of anticoagulants; Z79.899 Other long term (current) drug therapy; Z82.0 Family history of epilepsy and other diseases of the nervous system; Z82.3 Family history of stroke; Z82.49 Family history of ischemic heart disease and other diseases of the circulatory system; Z82.5 Family history of asthma and other chronic lower respiratory diseases; Z83.3 Family history of diabetes mellitus; Z95.0 Presence of cardiac pacemaker; Z88.5 Allergy status to narcotic agent
CPT/HCPCS: 36415; 71045; 73620; 80048; 80053; 82948; 83540; 83550; 83735; 83880; 84145; 84443; 84484; 84550; 85025; 87040; 93005; 93306; 93356; 93970; 93971; 94640; 94664; 97039; G0378; J0696; J1885; J1940; J2405; J2920; J3490

== ENCOUNTER 2020-07-21 00:38 | Inpatient (IN) | payer MEDICARE ==
[~2020-07-21] VITALS: Ht 162.6 cm; Wt 70.8 kg
[~2020-07-21 00:38] MED LIST changes: +MONT-39 PO; -MONT10TA32 PO
[2020-07-21 01:48] LABS: BASOPHILS % (AUTO) 0.8 % (0.0-5.0); EOSINOPHILS % (AUTO) 0.3 % (0.0-8.0); LYMPHOCYTES % (AUTO) 1.9 % (21.0-51.0); MEAN CORPUSCULAR HEMOGLOBIN 30.1 pg (27.0-33.0); MEAN CORPUSCULAR HGB CONC 34.2 g/dL (32.0-36.0); MONOCYTES % (AUTO) 3.4 % (3.0-13.0); NEUTROPHILS % (AUTO) 92.7 % (40.0-77.0); PLATELET COUNT (AUTO) 141 K/uL (130-400); RED BLOOD CELL COUNT(AUTO) 4.09 MIL/uL (4.00-5.50); RED CELL DISTRIBUTION WIDTH 15.7 % (11.0-15.5); WHITE BLOOD COUNT (AUTO) 13.4 K/uL (4.8-10.8)
[2020-07-21 02:25] LABS: ALBUMIN 1.8 g/dL (3.5-5.0); BILIRUBIN,TOTAL 0.6 mg/dL (0.2-1.0); CREATININE 3.1 mg/dL (0.5-1.5); POTASSIUM 5.9 mmol/L (3.5-5.1); TOTAL PROTEIN, SERUM 4.9 g/dL (6.0-8.3)
[2020-07-21 03:24] LABS: APPEARANCE,URINE Clear (CLEAR); BILIRUBIN,URINE Negative (NEGATIVE); COLOR,URINE Dark Yellow (YELLOW); GLUCOSE, URINE (UA) Negative (NEGATIVE); KETONES,URINE Trace mg/dL (NEGATIVE); LEUKOCYTE ESTERASE ,URINE Negative (NEGATIVE); NITRATE,URINE Negative (NEGATIVE); OCCULT BLOOD,URINE Negative (NEGATIVE); PROTEIN,URINE Trace mg/dL (NEGATIVE)
[2020-07-21 03:32] LABS: AMORPHOUS SEDIMENT,UR Few /LPF (None Seen); BACTERIA,URINE None Seen /HPF (None Seen); HYALINE CASTS, URINE 0-1 /LPF (0-1 /LPF); RBC,URINE None Seen /HPF (0-1); SQUAMOUS EPITHELIAL CELL,UR Few /HPF (0-2); WBC,URINE None Seen /HPF (0-1)
[2020-07-21] MEDS ORDERED: 0.9% NACL 500ML IV.SOLN 500 ML IV ONE (04:41)
[2020-07-21] MEDS ORDERED: METRONIDAZOLE 500MG/100ML BAG 100 ML ONE (06:05)
[2020-07-21] MEDS ORDERED: COMPOUND PO MISCELLANEOUS 1 EACH MISC MISC PRN (07:15)
[2020-07-21] MEDS: VANCOMYCIN 250MG/5ML ORAL SOLUTION 40ML PO SCH ×6 (07:15→19:15)
[2020-07-21] MEDS ORDERED: GLUCAGON 1MG KIT 1 MG ML IM PRN (07:15)
[2020-07-21] MEDS ORDERED: KAYEXALATE 15GM/60ML PO NR (07:15)
[2020-07-21] MEDS ORDERED: DEXTROSE 50%-WATER 50 ML DISP.SYRIN IV PRN (07:15)
[2020-07-21] MEDS: 0.9%NACL 1000ML 1,000 ML IV SCH (07:15)
[2020-07-21] MEDS: INSULIN R PO SS1 SQ SCH ×4 (07:30→21:00)
[2020-07-21] MEDS ORDERED: KAYEXALATE 15GM/60ML ONE ×2 (08:30→08:33)
[2020-07-21 11:09] LABS: MAGNESIUM 4.3 mg/dL (1.80-2.40); POTASSIUM 4.7 mmol/L (3.5-5.1)
[2020-07-21] MEDS ORDERED: DILTIAZEM 125 MG/25 ML INJ 125 MG in 0.9%NACL 100ML 100 ML IV PRN (11:45)
[2020-07-21] MEDS ORDERED: DILTIAZEM 25MG INJ IVP PRN (11:45)
[2020-07-21] MEDS ORDERED: APIXABAN 2.5 MG TABLET PO ONE (20:40)
[2020-07-21] MEDS: APIXABAN 2.5 MG TABLET PO SCH (21:00)
[2020-07-21 21:14] LABS: CREATININE 2.9 mg/dL (0.5-1.5); MAGNESIUM 4.1 mg/dL (1.80-2.40)
[2020-07-22] VITALS (7 sets, daily range): BP systolic 109–139; BP diastolic 52–63
[2020-07-22] MEDS: VANCOMYCIN 250MG/5ML ORAL SOLUTION 40ML PO SCH ×8 (01:15→20:37)
[2020-07-22] MEDS: 0.9%NACL 1000ML 1,000 ML IV SCH (03:20)
[2020-07-22 06:04] LABS: CREATININE 2.3 mg/dL (0.5-1.5); MAGNESIUM 3.1 mg/dL (1.80-2.40); POTASSIUM 3.1 mmol/L (3.5-5.1)
[2020-07-22] MEDS: INSULIN R PO SS1 SQ SCH ×4 (06:07→21:00)
[2020-07-22] MEDS: APIXABAN 2.5 MG TABLET PO SCH ×2 (09:07→20:37)
[2020-07-22] MEDS ORDERED: NS-20 MEQ KCL 1000ML 1,000 ML IV SCH (19:15)
[2020-07-23] VITALS (7 sets, daily range): BP systolic 115–132; BP diastolic 48–75
[2020-07-23] MEDS: VANCOMYCIN 250MG/5ML ORAL SOLUTION 40ML PO SCH ×8 (00:17→19:30)
[2020-07-23 06:14] LABS: HEMATOCRIT 29.5 % (36-48); MEAN CORPUSCULAR HEMOGLOBIN 30.9 pg (27.0-33.0); MEAN CORPUSCULAR HGB CONC 34.6 g/dL (32.0-36.0); MEAN CORPUSCULAR VOLUME 89.4 fL (79-99); RED BLOOD CELL COUNT(AUTO) 3.3 MIL/uL (4.00-5.50); RED CELL DISTRIBUTION WIDTH 15.9 % (11.0-15.5); WHITE BLOOD COUNT (AUTO) 10.9 K/uL (4.8-10.8)
[2020-07-23 06:28] LABS: ALBUMIN 1.6 g/dL (3.5-5.0); BILIRUBIN,TOTAL 0.5 mg/dL (0.2-1.0); CREATININE 2.4 mg/dL (0.5-1.5); MAGNESIUM 4.4 mg/dL (1.80-2.40); POTASSIUM 3.8 mmol/L (3.5-5.1)
[2020-07-23] MEDS: INSULIN R PO SS1 SQ SCH ×4 (06:40→21:00)
[2020-07-23] MEDS: APIXABAN 2.5 MG TABLET PO SCH ×2 (08:10→19:26)
[2020-07-23] MEDS ORDERED: PHARMACY COMMUNICATION MISC SCH (12:30)
[2020-07-23] MEDS: LACTATED RINGERS 1000ML 1,000 ML IV SCH (13:06)
[2020-07-23] MEDS ORDERED: MAG/ALUM/SIMETH 30 ML UDCUP PO ONE (13:45)
[2020-07-23] MEDS: MAG/ALUM/SIMETH 30 ML UDCUP PO PRN (19:30)
[2020-07-24] MEDS: VANCOMYCIN 250MG/5ML ORAL SOLUTION 40ML PO SCH ×8 (01:38→19:15)
[2020-07-24 04:04] VITALS: BP 125/63
[2020-07-24] MEDS: INSULIN R PO SS1 SQ SCH ×4 (06:55→21:00)
[2020-07-24 08:00] VITALS: BP 137/69
[2020-07-24] MEDS: LACTATED RINGERS 1000ML 1,000 ML IV SCH (08:45)
[2020-07-24] MEDS: APIXABAN 2.5 MG TABLET PO SCH ×3 (09:00→21:32)
[2020-07-24 10:27] LABS: HEMATOCRIT 31.2 % (36-48); MEAN CORPUSCULAR HEMOGLOBIN 31.2 pg (27.0-33.0); MEAN CORPUSCULAR HGB CONC 34.6 g/dL (32.0-36.0); MEAN CORPUSCULAR VOLUME 90.2 fL (79-99); PLATELET COUNT (AUTO) 65 K/uL (130-400); RED BLOOD CELL COUNT(AUTO) 3.46 MIL/uL (4.00-5.50); RED CELL DISTRIBUTION WIDTH 16.2 % (11.0-15.5); WHITE BLOOD COUNT (AUTO) 10.3 K/uL (4.8-10.8)
[2020-07-24 10:39] LABS: CREATININE 1.8 mg/dL (0.5-1.5); POTASSIUM 3.8 mmol/L (3.5-5.1)
[2020-07-24 12:00] VITALS: BP 120/57
[2020-07-24] MEDS: MAG/ALUM/SIMETH 30 ML UDCUP PO PRN (12:54)
[2020-07-24 19:56] VITALS: BP 132/62
[2020-07-25 00:30] VITALS: BP_SYST 130; BP_SYST 133; BP_DIAS 64; BP_DIAS 77
[2020-07-25] MEDS: LACTATED RINGERS 1000ML 1,000 ML IV SCH (01:49)
[2020-07-25] MEDS: VANCOMYCIN 250MG/5ML ORAL SOLUTION 40ML PO SCH ×8 (01:49→20:01)
[2020-07-25 04:25] VITALS: BP 123/62
[2020-07-25 04:28] LABS: CREATININE 1.5 mg/dL (0.5-1.5); POTASSIUM 4.3 mmol/L (3.5-5.1)
[2020-07-25] MEDS: INSULIN R PO SS1 SQ SCH ×2 (06:41→11:30)
[2020-07-25 07:30] VITALS: BP 122/61
[2020-07-25] MEDS: APIXABAN 2.5 MG TABLET PO SCH ×2 (09:00→20:01)
[2020-07-25] MEDS: ONDANSETRON 4MG INJ IVP PRN ×2 (09:05→15:12)
[2020-07-25] MEDS: ACETAMINOPHEN 325 MG TAB PO PRN ×4 (09:10→21:36)
[2020-07-25 11:00] VITALS: BP 124/55
[2020-07-25 16:00] VITALS: BP 115/56
[2020-07-25] MEDS: MAG/ALUM/SIMETH 30 ML UDCUP PO PRN (20:02)
[2020-07-25 20:08] VITALS: BP 124/58
[2020-07-26] MEDS: VANCOMYCIN 250MG/5ML ORAL SOLUTION 40ML PO SCH ×8 (00:50→18:53)
[2020-07-26] MEDS: ONDANSETRON 4MG INJ IVP PRN ×2 (00:51→08:24)
[2020-07-26 03:52] VITALS: BP 119/54
[2020-07-26 08:00] VITALS: BP 129/61
[2020-07-26] MEDS: ACETAMINOPHEN 325 MG TAB PO PRN ×2 (08:23→20:35)
[2020-07-26] MEDS: APIXABAN 2.5 MG TABLET PO SCH ×2 (08:24→20:34)
[2020-07-26] MEDS: DICYCLOMINE HCL 10 MG/5 ML ML PO PRN ×2 (11:02→20:34)
[2020-07-26 12:00] VITALS: BP 126/59
[2020-07-26 16:00] VITALS: BP 115/53
[2020-07-26 19:43] VITALS: BP 117/65
[2020-07-27] MEDS: VANCOMYCIN 250MG/5ML ORAL SOLUTION 40ML PO SCH ×8 (01:15→18:41)
[2020-07-27 04:16] VITALS: BP 119/57
[2020-07-27 04:57] LABS: ALBUMIN 1.7 g/dL (3.5-5.0); BILIRUBIN,TOTAL 0.6 mg/dL (0.2-1.0); CREATININE 1.5 mg/dL (0.5-1.5); MAGNESIUM 5.3 mg/dL (1.80-2.40); POTASSIUM 4.4 mmol/L (3.5-5.1); TOTAL PROTEIN, SERUM 4.1 g/dL (6.0-8.3)
[2020-07-27 08:00] VITALS: BP 111/55
[2020-07-27] MEDS: DICYCLOMINE HCL 10 MG/5 ML ML PO PRN ×2 (09:34→18:39)
[2020-07-27] MEDS: APIXABAN 2.5 MG TABLET PO SCH ×2 (09:35→20:19)
[2020-07-27 11:12] VITALS: BP 123/57
[2020-07-27] MEDS: ACETAMINOPHEN 325 MG TAB PO PRN ×2 (11:45→18:33)
[2020-07-27] MEDS: MAG/ALUM/SIMETH 30 ML UDCUP PO PRN ×2 (11:45→20:19)
[2020-07-27 16:00] VITALS: BP 112/50
[2020-07-27 20:18] VITALS: BP 127/56
[2020-07-28] VITALS (7 sets, daily range): BP systolic 109–132; BP diastolic 46–59
[2020-07-28] MEDS: VANCOMYCIN 250MG/5ML ORAL SOLUTION 40ML PO SCH ×8 (03:06→18:47)
[2020-07-28] MEDS: ACETAMINOPHEN 325 MG TAB PO PRN ×2 (09:05→20:44)
[2020-07-28] MEDS: APIXABAN 2.5 MG TABLET PO SCH ×2 (09:06→20:44)
[2020-07-28] MEDS: MAG/ALUM/SIMETH 30 ML UDCUP PO PRN ×2 (09:06→17:22)
[2020-07-28 12:56] LABS: HEMATOCRIT 31.8 % (36-48)
[2020-07-28] MEDS: SIMETHICONE 80 MG TAB.CHEW PO PRN ×2 (13:06→20:42)
[2020-07-28] MEDS: DICYCLOMINE HCL 10 MG/5 ML ML PO PRN ×2 (18:42→23:23)
[2020-07-28] MEDS: ONDANSETRON 4MG INJ IVP PRN (23:23)
[2020-07-29] MEDS: VANCOMYCIN 250MG/5ML ORAL SOLUTION 40ML PO SCH ×6 (00:20→12:38)
[2020-07-29 04:15] VITALS: BP 119/56
[2020-07-29 05:10] LABS: CREATININE 1.3 mg/dL (0.5-1.5); POTASSIUM 4.7 mmol/L (3.5-5.1)
[2020-07-29 07:00] VITALS: BP 100/54
[2020-07-29] MEDS: SIMETHICONE 80 MG TAB.CHEW PO PRN ×2 (09:09→17:10)
[2020-07-29 11:00] VITALS: BP 114/54
[2020-07-29] MEDS: DICYCLOMINE HCL 10 MG/5 ML ML PO PRN (12:37)
[2020-07-29 16:37] VITALS: BP 133/59
== END 2020-07-29 17:50 | DRG 371 ==
LOC: EDH 00:38 → EDHIP 06:15 → 3CH 23:10 → EDHIP 23:59 → 4CH 07-22 02:04
PROVIDERS: ADMIT Internal Medicine; ATTEND Internal Medicine
DX: A04.72 Enterocolitis due to Clostridium difficile, not specified as recurrent (principal); E43 Unspecified severe protein-calorie malnutrition; N17.9 Acute kidney failure, unspecified; E87.1 Hypo-osmolality and hyponatremia; J45.901 Unspecified asthma with (acute) exacerbation; R18.8 Other ascites; I13.0 Hypertensive heart and chronic kidney disease with heart failure and stage 1 through stage 4 chronic kidney disease, or unspecified chronic kidney disease; E86.0 Dehydration; I48.0 Paroxysmal atrial fibrillation; N18.9 Chronic kidney disease, unspecified; I50.9 Heart failure, unspecified; I49.5 Sick sinus syndrome; M10.9 Gout, unspecified; J44.9 Chronic obstructive pulmonary disease, unspecified; E78.5 Hyperlipidemia, unspecified; E87.5 Hyperkalemia; I25.10 Atherosclerotic heart disease of native coronary artery without angina pectoris; E87.6 Hypokalemia; D69.6 Thrombocytopenia, unspecified; D25.9 Leiomyoma of uterus, unspecified; R29.6 Repeated falls; E87.70 Fluid overload, unspecified; R53.81 Other malaise; E66.9 Obesity, unspecified; E11.22 Type 2 diabetes mellitus with diabetic chronic kidney disease; K76.9 Liver disease, unspecified; Z96.652 Presence of left artificial knee joint; Z68.26 Body mass index [BMI] 26.0-26.9, adult; Z88.5 Allergy status to narcotic agent; Z74.01 Bed confinement status; Z95.0 Presence of cardiac pacemaker; Z79.01 Long term (current) use of anticoagulants
CPT/HCPCS: 36415; 70450; 71045; 74176; 80048; 80053; 81001; 82948; 83735; 84484; 85014; 85018; 85025; 85027; 87507; 93005; 97039; G0378; J2405; J3370; J3480; J3490; J7040; J7120